=== PATIENT | female | born 1960 ===

== ENCOUNTER 2023-11-18 09:25 | Outpatient (CLI) | payer BC ==
[2023-11-18 11:35] LABS: #Basophils 0.05 10x3/uL (0.0-0.2); #Monocytes 0.49 10x3/uL (0.0-1.1); #Neutrophils 4.05 10x3/uL (1.5-8.4); %Basophils 0.7 % (0.0-2.0); %Eosinophils 1.4 % (0.0-6.0); %Monocytes 7.1 % (0.0-10.0); %Neutrophils 58.5 % (40.0-75.0); Hematocrit 43.4 % (34.9-44.5); Hemoglobin 14.5 g/dL (12.0-15.5); Mean Corpuscular HGB CONC 33.4 g/dL (32.0-36.0); Mean Corpuscular Volume 92.9 fL (81.6-98.3); Mean Platelet Volume 10.7 fL (7.4-10.4); Platelet Count 334 10x3/uL (150-450); RBC Distribution Width 12.9 % (11.5-14.5); Red Blood Cell (RBC) Count 4.67 10x6/uL (3.90-5.03); White Blood Cell (WBC) Count 6.9 10x3/uL (3.5-10.5)
[2023-11-18 11:50] LABS: Anion Gap 14 mmol/L (10-20); BUN (Urea Nitrogen) 18 mg/dL (9.8-20.1); Calc. Creatinine Clearance 0 mL/min (70-130); Carbon Dioxide 26 mmol/L (23-31); Chloride 104 mmol/L (98-107); Estimated GFR 73; Glucose 95 mg/dL (80-115); Potassium 4.4 mmol/L (3.5-5.1); Sodium 140 mmol/L (136-145)
== END 2023-11-18 09:26 | disposition home or self-care (01) ==
LOC: CSHLAB 09:25
PROVIDERS: ATTEND Surgery
DX: Z01.818 Encounter for other preprocedural examination (principal); K40.90 Unilateral inguinal hernia, without obstruction or gangrene, not specified as recurrent
CPT/HCPCS: 80048; 85025; 93005; 93010

== ENCOUNTER 2023-12-02 07:17 | Day surgery (SDC) | payer BC ==
[2023-11-18 10:43] VITALS: BMI 21.2
[2023-12-02] MEDS ORDERED: Lidocaine 1% PF 5 ML VIAL ONE (08:11)
[2023-12-02] MEDS ORDERED: PROPOFOL 20 ML ONE (08:11)
[2023-12-02] MEDS ORDERED: Midazolam HCl 2 mg/2 ml Vial ONE (09:03)
[2023-12-02] MEDS ORDERED: Bupivacaine 0.25% HCL 30 ML VIAL ONE (09:12)
[2023-12-02] MEDS ORDERED: EPINEPHrine 1 MG/ML VIAL ONE (09:12)
[2023-12-02] MEDS ORDERED: fentaNYL 50 mcg/mL 1 mL Vial ONE (09:13)
[2023-12-02] MEDS ORDERED: CEFAZOLIN 2 GM VIAL ONE (09:19)
[2023-12-02] MEDS ORDERED: Dexamethasone 4 mg/ml Vial ONE (09:42)
[2023-12-02] MEDS ORDERED: ePHEDrine Sulfate 50 MG/10 ML VIAL ONE (09:49)
[2023-12-02] MEDS ORDERED: SUGAMMADEX SODIUM 200 MG/2 ML VIAL ONE (10:22)
== END 2023-12-02 12:35 | disposition home or self-care (01) ==
LOC: CSHSDC 07:17
PROVIDERS: ATTEND Surgery
PROC: 0YUA4JZ Supplement Bilateral Inguinal Region with Synthetic Substitute, Percutaneous Endoscopic Approach (ICD-10-PCS; principal; 2023-12-02)
DX: K40.20 Bilateral inguinal hernia, without obstruction or gangrene, not specified as recurrent (principal); Z79.899 Other long term (current) drug therapy
CPT/HCPCS: C1781; J0171; J0665; J1100; J2250; J2704; J3010